=== PATIENT | female | born 1990 | race Caucasian/White ===

== ENCOUNTER 2017-02-15 12:54 | Outpatient (CLI) | payer OTHER ==
[~2017-02-15] VITALS: Ht 152.4 cm; Wt 74.2 kg
[~2017-02-15 12:54] MED LIST: FERR240T9; PREN1TAB12
[2017-02-15 13:11] VITALS: BP 110/72; PULSE 78; RESP 18; Ht 152.4 cm; Wt 74.2 kg
[2017-02-15] MEDS ORDERED: FOLI-49 PO (13:11)
[2017-02-15] MEDS ORDERED: CALC600T11 PO (13:11)
--- NOTE | 2017-02-15 13:47 | RADRPT ---
PROCEDURE: US OB biophysical profile. CLINICAL INDICATION: evaluation TECHNIQUE: Multiple sonographic images of the pelvis were obtained. The images were reviewed on a PACS workstation. COMPARISON: No prior studies are available for comparison. FINDINGS: There is a single viable intrauterine gestation. Cardiac activity is present with 143 beats per min kathie. There is a vertex presentation. The placenta is posterior. There is no evidence of placental abruption. There is a normal amount of amniotic fluid with an BRANDO = 11.7 cm. Biophysical profile: movement 2/2 tone 2/2. breathing 2/2 BRANDO 2/2 Total 06/06 RPTAT: AA . IMPRESSION: Normal biophysical profile. Normal BRANDO. Cephalic presentation. Physician Nikki Date Time Electronically viewed and signed by Physician Nikki on 02/15/2017 13:46 RA/
--- NOTE | 2017-02-15 14:32 | TRIAGE ---
OB Triage Datetime Report Generated by CPN: 02/15/2017 14:32 Datetime: 02/15/2017 14:00 Stage of : OB Triage Maternal Assessment Level of Consciousness: Fully Conscious Labor Evaluation Frequency: NONE Monitor Mode: External Resting Tone Theodore: Relaxed Heart Rate FHR Baseline Rate: 145 Monitor Mode: External US Variability: Moderate 6-25 bpm Accelerations: 15X15 Decelerations: None Category: Category I Pain Assessment Pain Scale: 0 Pain Presence: None/Denies Pain Type: N/A Pain Goal: 3 Vaginal Exam Membrane Status: Intact Vaginal Bleeding: None Datetime: 02/15/2017 13:08 Assessment Type: Triage Maternal Assessment Level of Consciousness: Fully Conscious DTR's/Clonus: DTRs 2+; No Clonus Headache: Denies Blurred Vision: No Respiratory Effort: Unlabored; Regular Rhythm; Equal Expansion Breath Sounds, Left: Clear and Equal Breath Sounds, Right: Clear and Equal Nausea/Vomiting: Denies RUQ Epigastric Pain: Denies Lower Extremities Edema: None Degree: None Upper Extremities Edema: None Degree: None Facial Edema: None Fall Risk Assessment History of Falling: (0) No Secondary Diagnosis: (0) No Ambulatory Aid: (0) Bedrest/Nurse Assist IV Therapy: (0) No Gait: (0) Normal/Bedrest/Immobile Mental Status: (0) Oriented to Own Ability Fall Score: 0 Fall Risk Score Definition: No Risk: No action required Datetime: 02/15/2017 13:07 EGA: 38.4 Datetime: 02/15/2017 13:04 Time of Arrival: 02/15/2017 12:52 Arrived By: Ambulatory Arrived From: Office Chief Complaint: PT SENT FROM CLINIC FOR NST/BPP FOR GDM Movement: Present Contractions: Denies/Absent Rupture of Membranes: Denies Vaginal Bleeding: None Vaginal Discharge: Denies Recent Sexual Intercouse: Denies Abdominal Trauma: Not Applicable Patient Complaints: None Time Provider Notified: 02/15/2017 14:20 Provider Notified: CHARLES Initial Plan: NST/BPP Datetime: 02/15/2017 13:03 Monitor Mode: External Monitor Mode: External US
--- NOTE | 2017-02-15 14:54 | QN ---
Documentation Comment 26-year-old with IUP at 38 weeks and 4 days with GDM A1, diet controlled and care with Dr. Whalen at [facility] was sent to triage for NST BPP due to GDM diet-controlled. Next Patient denies any leaking of fluid, vaginal bleeding, decreased movement or uterine contractions. Patient has been compliant with taking her blood sugar regularly. Her random blood sugar today is 117. She reports that her fasting blood sugar running 80s and postprandial maximal was 120s. Physical examination: General appearance: Alert and oriented 4 patient does not appear to be in any acute distress Abdomen: Soft, gravid, nontender. Fundal height consistent with gestational age Extremities: No calf tenderness no click no edema NST: Category 1 BPP: 06/06 Assessment: IUP at 38 weeks and 4 days GDM, A1. Diet control NST /BPP reassuring Plan: DC home Continue close monitoring of blood sugar and follow-up with her primary OB Continue NST/ BPP twice a week Labor precautions and kick count discussed If has good control delivery at 40 weeks. Patient agreed to have a close follow-up and management with her primary software support representative. LEVI HOLT MD Feb 15, 2017 14:54
== END 2017-02-15 14:40 | disposition home or self-care (01) ==
LOC: L-D 12:54 → OBT 12:54 → L-D 12:56 → OBT 14:40
PROVIDERS: ATTEND Obstetrics & Gynecology
DX: O24.410 Gestational diabetes mellitus in pregnancy, diet controlled (principal); Z3A.38 38 weeks gestation of pregnancy
CPT/HCPCS: 76818; Z7500; G0463

== ENCOUNTER 2017-02-20 16:48 | Inpatient (IN) | payer OTHER ==
[~2017-02-20] VITALS: Ht 152.4 cm; Wt 75.0 kg
[~2017-02-20 16:48] MED LIST changes: +CALC600T11 PO; +FOLI-49 PO
[2017-02-20 16:59] VITALS: BP 111/70; PULSE 90; RESP 20; Ht 152.4 cm; Wt 75.0 kg
[2017-02-20] MEDS ORDERED: ACETAMINOPHEN/CODEINE #3 TAB PO PRN (17:30)
[2017-02-20] MEDS ORDERED: OXYTOCIN 30 UNITS/LR 500 ML IV SCH ×3 (17:30→19:00)
[2017-02-20] MEDS ORDERED: METHYLERGONOVINE 0.2 MG INJ IM PRN (17:30)
[2017-02-20] MEDS ORDERED: BUTORPHANOL 2 MG INJ IV PRN (17:30)
[2017-02-20] MEDS ORDERED: OXYTOCIN 30 UNITS/LR 500 ML IV PRN (17:30)
[2017-02-20] MEDS ORDERED: LIDOCAINE 1% (MPF) 30 ML INJ INJ PRN (17:30)
[2017-02-20] MEDS ORDERED: IBUPROFEN 600 MG TAB PO PRN (17:30)
[2017-02-20] MEDS ORDERED: MISOPROSTOL 200 MCG TAB PR PRN (17:30)
[2017-02-20] MEDS ORDERED: CARBOPROST 250 MCG INJ IM PRN (17:30)
[2017-02-20] MEDS: LACTATED RINGER'S 1,000 ML IV SCH (17:56)
--- NOTE | 2017-02-20 17:58 | RADRPT ---
PROCEDURE: US OB CLINICAL INDICATION: macrosomia, labor TECHNIQUE: Multiple sonographic images of the pelvis were obtained. The images were reviewed on a PACS workstation. COMPARISON: Obstetrical ultrasound from 02/15/2017 FINDINGS: The cervix is not well visualized. There is a single viable intrauterine gestation. Cardiac activity is present with 159 beats per minute. There is a vertex presentation. The placenta is fundal. There is no evidence for an abruption or placenta previa. There is a subjectively normal amount of amniotic fluid. Measurements were made in order to determine age. The results are as follows (cm): BPD =9.02 HC =13.36 AC =36.53 FL =7.77 Estimated gestational age by ultrasound of approximately 38 weeks, 2 days. The estimated date of delivery by ultrasound is 03/04/2017. Reported gestational age by LMP of approximately 39 weeks, 2 days. The reported date of delivery by LMP is 02/25/2017. EFW = 3741 grams (71st percentile) IMPRESSION: Single viable intrauterine gestation of approximately 38 weeks, 2 days . The estimated date of delivery is 03/04/2017 . Dating by ultrasound is within 1 week of dating by LMP. Cephalic presentation. Estimated weight is in the 71st percentile. RPTAT: EE Physician Nikki Date Time Electronically viewed and signed by Physician Nikki on 02/20/2017 17:58 /
[2017-02-20 18:04] LABS: ADD SCAN DIFF NO
[2017-02-20 18:05] LABS: BASOPHILS % 0.3 % (0.0-2.0); EOSINOPHILS % 0.1 % (0.0-7.0); HEMATOCRIT 35.7 % (37.0-47.0); HEMOGLOBIN 12.3 g/dl (12.0-16.0); LYMPHOCYTES # 1.9 10^3/ul (0.8-2.9); LYMPHOCYTES % 20.4 % (15.0-51.0); MEAN CORPUSCULAR HEMOGLOBIN 33.8 pg (29.0-33.0); MEAN CORPUSCULAR HGB CONC 34.5 g/dl (32.0-37.0); MEAN CORPUSCULAR VOLUME 98.1 fl (82.0-101.0); MONOCYTE # 0.6 10^3/ul (0.3-0.9); MONOCYTES % 6.8 % (0.0-11.0); NEUTROPHIL # 6.8 10^3/ul (1.6-7.5); PLATELET COUNT 145 10^3/UL (140-415); RED BLOOD COUNT 3.64 10^6/ul (4.20-5.40); RED CELL DISTRIBUTION WIDTH 13.5 % (11.5-14.5); WHITE BLOOD COUNT 9.5 10^3/ul (4.8-10.8)
[2017-02-20 18:16] LABS: INR 0.94; PROTIME 12.6 Sec (12.2-14.2)
[2017-02-20 18:17] LABS: PARTIAL THROMBOPLASTIN TIME 26.9 Sec (25.0-35.0)
[2017-02-20] MEDS ORDERED: LACTATED RINGER'S 1,000 ML IV PRN (19:00)
[2017-02-21] MEDS: ACCU-CHEK XX SCH ×6 (01:00→21:00)
[2017-02-21] MEDS: LACTATED RINGER'S 1,000 ML IV SCH ×2 (01:33→17:05)
[2017-02-21] MEDS: DEXTROSE 5%-LR 1,000 ML IV SCH ×2 (05:38→13:21)
--- NOTE | 2017-02-21 11:13 | RADRPT ---
PROCEDURE: Limited OB ultrasound CLINICAL INDICATION: position TECHNIQUE: Sonographic evaluation to assess the position was performed. Transabdominal imag ing of the gravid uterus was performed. COMPARISON: OB ultrasound dated 02/20/2017 FINDINGS: There is a single live intrauterine with a heart rate of 141 bpm. position is cephalic. The placenta is left lateral. IMPRESSION: Cephalic position. RPTAT: HH .Machelle Cole MD, MD Date Time Electronically viewed and signed by .Machelle Cole MD, MD on 02/21/2017 11:12 .G/
[2017-02-22] MEDS: DEXTROSE 5%-LR 1,000 ML IV SCH ×4 (00:53→23:03)
[2017-02-22] MEDS: ACCU-CHEK XX SCH ×6 (01:00→21:00)
[2017-02-22] MEDS: LACTATED RINGER'S 1,000 ML IV SCH ×4 (01:05→17:00)
--- NOTE | 2017-02-22 09:59 | HP ---
Date/Time of Note Date/Time of Note DATE: 02/22/17 TIME: 09:57 OB - History Hx of Present Free Text/Dictation @39+wks GA GDM ,Cx /-5 : 2 Para: 1 Care: Good Care Ultrasounds: Normal mid trimester US Obstetrical Complications: Gestational Diabetes Medical Complications: None Past Family/Social History * Past Medical, Surgical, Family and Obstetric Histories reviewed from chart. OB Admission Exam Vital Signs Vital Signs Vital Signs Date Time Temp Pulse Resp B/P Pulse Ox O2 Delivery O2 Flow Rate FiO2 02/20/17 16:59 98.2 90 20 111/70 Room Air Physical Exam Lungs: Clear Abdomen: WNL Extremities: Normal Cervical Dilatation: 1cm Effacement: Other Station: Ballotable Membranes: Intact Heart Rate: 140's Accelerations: Accelerations Present Decelerations: No Decelerations Varibility: Moderate Contractions on Admission: 6-10 Minutes Apart Last 72 hourBlood Glucose Bedside Glucose - 72 Hours Test 02/20/17 22:02 02/21/17 04:15 02/21/17 07:57 02/21/17 11:59 Bedside Glucose 72mg/dL (70-220) 64mg/dL (70-220) L 81mg/dL (70-220) 100mg/dL (70-220) Test 02/21/17 16:22 02/21/17 20:37 02/22/17 00:52 02/22/17 07:10 Bedside Glucose 84mg/dL (70-220) 90mg/dL (70-220) 88mg/dL (70-220) 96mg/dL (70-220) Last 72 hours Lab Results CBC & BMP 02/20/17 17:50 OB Assessment/Plan Reason for admission: induction of labor Induction Method: per Pitocin Protocol SERENITY SOTO M.D. Feb 22, 2017 09:59
--- NOTE | 2017-02-22 11:49 | QN ---
Documentation Comment primary c/section Vs Rest for 24 hours as in patient and Re-trying the induction discussed with patient Risks and Benefits of each extensively discussed with patient and her NST Reassuring CX 4ccm/80%/Ballotable Case D/w ,Perinatalogist SERENITY SOTO M.D. Feb 22, 2017 11:49
[2017-02-23] MEDS: LACTATED RINGER'S 1,000 ML IV SCH ×5 (01:05→17:45)
[2017-02-23] MEDS: ACCU-CHEK XX SCH ×6 (01:05→20:04)
[2017-02-23] MEDS: DEXTROSE 5%-LR 1,000 ML IV SCH ×3 (01:06→20:09)
[2017-02-23] MEDS ORDERED: LACTATED RINGER'S 1,000 ML IV SCH (01:25)
[2017-02-23] MEDS ORDERED: MULTIVIT/MIN/FOLATE/IRON/PREN TAB PO SCH (09:00)
[2017-02-23] MEDS ORDERED: FOLIC ACID 1 MG TAB PO SCH (09:00)
[2017-02-23] MEDS ORDERED: LIDOCAINE 1% (MPF) 30 ML INJ INJ PRN (10:00)
[2017-02-23] MEDS ORDERED: LACTATED RINGER'S 1,000 ML IV PRN (10:00)
[2017-02-23 10:42] LABS: ADD SCAN DIFF NO
[2017-02-23 10:51] LABS: BASOPHILS % 0.3 % (0.0-2.0); EOSINOPHILS % 0.3 % (0.0-7.0); HEMATOCRIT 34.1 % (37.0-47.0); HEMOGLOBIN 11.4 g/dl (12.0-16.0); LYMPHOCYTES # 1.7 10^3/ul (0.8-2.9); LYMPHOCYTES % 30.1 % (15.0-51.0); MEAN CORPUSCULAR HEMOGLOBIN 33.2 pg (29.0-33.0); MEAN CORPUSCULAR HGB CONC 33.4 g/dl (32.0-37.0); MEAN CORPUSCULAR VOLUME 99.4 fl (82.0-101.0); MEAN PLATELET VOLUME 11.4 fl (7.4-10.4); MONOCYTE # 0.4 10^3/ul (0.3-0.9); MONOCYTES % 6.6 % (0.0-11.0); NEUTROPHIL # 3.6 10^3/ul (1.6-7.5); NEUTROPHILS % 62.4 % (39.0-77.0); PLATELET COUNT 112 10^3/UL (140-415); RED BLOOD COUNT 3.43 10^6/ul (4.20-5.40); RED CELL DISTRIBUTION WIDTH 13.9 % (11.5-14.5); WHITE BLOOD COUNT 5.7 10^3/ul (4.8-10.8)
[2017-02-23 10:56] LABS: INR 0.93; PROTIME 12.5 Sec (12.2-14.2)
[2017-02-23 10:57] LABS: PARTIAL THROMBOPLASTIN TIME 27.6 Sec (25.0-35.0)
[2017-02-23] MEDS ORDERED: FENTAnyl 2MCG/ML-ROPIV 0.2% 100 ML ONE (23:41)
[2017-02-24] MEDS ORDERED: FENTAnyl 2MCG/ML-ROPIV 0.2% 100 ML BAG EPI SCH (01:00)
[2017-02-24] MEDS ORDERED: NALOXONE (0.4 MG/ML) INJ IV PRN (01:00)
--- NOTE | 2017-02-24 01:49 | LDN ---
Date/Time of Note Date/Time of Note DATE: 02/24/17 TIME: 01:47 Delivery Summary Post hemorrhage <uterine atony received Methergine Placenta Delivered: Spontaneously Meconium: Light Episiotomy: No Perineal laceration: 2 Anesthesia type: Epidural Estimated blood loss: 500 Sponge & Needle done & correct: Yes All needle counts correct: Yes Any foreign bodies felt in the: No Problems: Delivery Information Sex Infant Sex: female Apgars 1 Minute: 9 5 Minute: 9 Suctioning Nose & mouth suctioned at roberto: Yes Delee suction performed: Yes Umbilical Cord Umbilical cord with: 3 Vessels Cord presentations: nuchal cord Nuchal cord present X: 1 Cord Blood was obtained: Yes Mother & Baby Disposition Disposition Mom & Baby to Maternity; Good: Yes Baby to NICU: No SERENITY SOTO M.D. Feb 24, 2017 01:49
[2017-02-24] MEDS ORDERED: WITCH HAZEL/GLYCERIN PAD PR PRN (03:30)
[2017-02-24] MEDS ORDERED: BENZOCAINE 20% 56 ML SPRAY TOP PRN (03:30)
[2017-02-24] MEDS ORDERED: SENNA/DOCUSATE NA (8.6MG/50MG) TAB PO PRN (03:30)
[2017-02-24] MEDS ORDERED: MISOPROSTOL 200 MCG TAB PR PRN (03:30)
[2017-02-24] MEDS ORDERED: METHYLERGONOVINE 0.2 MG INJ IM PRN (03:30)
[2017-02-24] MEDS ORDERED: CARBOPROST 250 MCG INJ IM PRN (03:30)
[2017-02-24] MEDS ORDERED: ZOLPIDEM 5 MG TAB PO PRN (03:30)
[2017-02-24] MEDS ORDERED: OXYCODONE/ASPIRIN (4.88/325) TAB PO PRN (03:30)
[2017-02-24] MEDS ORDERED: LANOLIN 7 GM TUBE TOP PRN (03:30)
[2017-02-24] MEDS ORDERED: OXYTOCIN 30 UNITS/LR 500 ML IV PRN (03:30)
[2017-02-24 04:15] VITALS: BP 114/74; PULSE 75; RESP 20
[2017-02-24] MEDS: IBUPROFEN 600 MG TAB PO SCH ×4 (05:43→23:42)
[2017-02-24] MEDS: LACTATED RINGER'S 1,000 ML IV* SCH ×2 (05:43→11:28)
[2017-02-24] MEDS: ACCU-CHEK XX SCH ×4 (07:30→14:56)
[2017-02-24 07:50] VITALS: BP 109/70; PULSE 75; RESP 17
[2017-02-24 08:35] LABS: ADD SCAN DIFF NO
[2017-02-24 08:44] LABS: BASOPHILS % 0.1 % (0.0-2.0); HEMATOCRIT 30.8 % (37.0-47.0); HEMOGLOBIN 10.7 g/dl (12.0-16.0); LYMPHOCYTES # 1.2 10^3/ul (0.8-2.9); LYMPHOCYTES % 8.3 % (15.0-51.0); MEAN CORPUSCULAR HEMOGLOBIN 34.3 pg (29.0-33.0); MEAN CORPUSCULAR HGB CONC 34.7 g/dl (32.0-37.0); MEAN CORPUSCULAR VOLUME 98.7 fl (82.0-101.0); MEAN PLATELET VOLUME 11.5 fl (7.4-10.4); MONOCYTE # 0.8 10^3/ul (0.3-0.9); MONOCYTES % 5.6 % (0.0-11.0); NEUTROPHIL # 11.9 10^3/ul (1.6-7.5); NEUTROPHILS % 85.6 % (39.0-77.0); PLATELET COUNT 125 10^3/UL (140-415); RED BLOOD COUNT 3.12 10^6/ul (4.20-5.40); RED CELL DISTRIBUTION WIDTH 13.3 % (11.5-14.5); WHITE BLOOD COUNT 13.9 10^3/ul (4.8-10.8)
[2017-02-24] MEDS: SENNA/DOCUSATE NA (8.6MG/50MG) TAB PO SCH ×2 (09:16→21:08)
[2017-02-24 12:00] VITALS: BP 110/72; PULSE 87; RESP 16
[2017-02-24 16:15] VITALS: BP 107/64; PULSE 70; RESP 18
[2017-02-24 19:45] VITALS: BP 127/59; PULSE 76; RESP 18
--- NOTE | 2017-02-24 23:09 | QN ---
Documentation Comment PPD#1 is stable afebrile tolerates diet No VB +BM +voids No sign of depression VS stable Gen NAD Abd soft NT ND Genitalia No blood at perinium __>Discharge plan tomorrow SERENITY SOTO M.D. Feb 24, 2017 23:09
--- NOTE | 2017-02-24 23:10 | DS ---
Date/Time of Note Date/Time of Note DATE: 02/24/17 TIME: 23:09 Discharge Summary Admission/Discharge Info Admit Date/Time Feb 20, 2017 at 16:48 Discharge Date/Time Jan Final Diagnosis Labor GDM Patient Condition: Stable Procedures VAGINAL DELIVERY Hospital Course UNEVENTFUL Home Meds Reported Medications Folic Acid* (Folic Acid*) 1 Mg Tablet, 1 MG PO DAILY, TAB 02/15/17 Calcium Carbonate* (Calcium Carbonate*) 600 MG Ca Tab, 600 MG PO DAILY, TAB 02/15/17 Ferrous Gluconate (Iron) 1 Tab Tablet 07/22/10 Vit/Fe Fumarate/Fa ( 1-1 Tablet) 1 Tab Tablet 07/22/10 Pending Labs Laboratory Tests Test 02/24/17 07:15 02/24/17 08:02 02/24/17 10:48 02/24/17 14:55 White Blood Count 13.910^3/ul (4.8-10.8) Red Blood Count 3.1210^6/ul (4.20-5.40) Hemoglobin 10.7g/dl (12.0-16.0) Hematocrit 30.8% (37.0-47.0) Mean Corpuscular Volume 98.7fl (82.0-101.0) Mean Corpuscular Hemoglobin 34.3pg (29.0-33.0) Mean Corpuscular Hemoglobin Concent 34.7g/dl (32.0-37.0) Red Cell Distribution Width 13.3% (11.5-14.5) Platelet Count 45197^3/UL (140-415) Mean Platelet Volume 11.5fl (7.4-10.4) Neutrophils % 85.6% (39.0-77.0) Lymphocytes % 8.3% (15.0-51.0) Monocytes % 5.6% (0.0-11.0) Eosinophils % 0.0% (0.0-7.0) Basophils % 0.1% (0.0-2.0) Nucleated Red Blood Cells % 0.0/100WBC (0.0-0.0) Neutrophils # 11.910^3/ul (1.6-7.5) Lymphocytes # 1.210^3/ul (0.8-2.9) Monocytes # 0.810^3/ul (0.3-0.9) Eosinophils # 0.010^3/ul (0.0-0.5) Basophils # 0.010^3/ul (0.0-0.1) Nucleated Red Blood Cells # 0.010^3/ul (0.0-0.0) Bedside Glucose 91mg/dL (70-220) 85mg/dL (70-220) 87mg/dL (70-220) Test 02/24/17 22:02 Bedside Glucose 95mg/dL (70-220) SERENITY SOTO M.D. Feb 24, 2017 23:10
[2017-02-24 23:48] VITALS: BP 101/66; PULSE 77; RESP 18
[2017-02-25 04:05] VITALS: BP 107/68; PULSE 76; RESP 18
[2017-02-25] MEDS: IBUPROFEN 600 MG TAB PO SCH (05:51)
[2017-02-25] MEDS: ACCU-CHEK XX SCH ×2 (07:30→10:05)
[2017-02-25 08:30] VITALS: BP 96/62; PULSE 66; RESP 17
[2017-02-25] MEDS: SENNA/DOCUSATE NA (8.6MG/50MG) TAB PO SCH (09:28)
[2017-02-26] MEDS ORDERED: DIPHTH/TET/ACEL PERTUSS (ADULT) 0.5 ML VIAL IM* ONE (09:00)
== END 2017-02-25 16:26 | disposition home or self-care (01) | DRG 775 ==
LOC: L-D 16:48 → OBG 02-22 14:00 → L-D 02-23 09:42 → PP1 02-24 03:30 → EDSTATUS 02-25 16:47
PROVIDERS: ADMIT Obstetrics & Gynecology; ATTEND Obstetrics & Gynecology
PROC: 10E0XZZ Delivery of Products of Conception, External Approach (ICD-10-PCS; principal; 2017-02-24)
PROC: 0KQM0ZZ Repair Perineum Muscle, Open Approach (ICD-10-PCS; 2017-02-24)
PROC: 3E00X4Z Introduction of Serum, Toxoid and Vaccine into Skin and Mucous Membranes, External Approach (ICD-10-PCS; 2017-02-25)
DX: O69.81X0 Labor and delivery complicated by cord around neck, without compression, not applicable or unspecified (principal); O24.429 Gestational diabetes mellitus in childbirth, unspecified control; Z23 Encounter for immunization; Z3A.39 39 weeks gestation of pregnancy; Z37.0 Single live birth
CPT/HCPCS: 62319; 76815; 82947; 82962; 85025; 85610; 85730; 86592; 86900; 86901; 87340; 99464; J2210; J2590; J3010; J7120; J7121